=== PATIENT | female | born 2000 | race Caucasian/White ===

== ENCOUNTER 2022-10-05 21:10 | Emergency (ER) | payer OTHER ==
[~2022-10-05] VITALS: Ht 162.6 cm; Wt 95.3 kg
[2022-10-05 21:25] VITALS: BP 146/95
--- NOTE | 2022-10-05 23:48 | NUR ---
PT AMBULATE TO ROOM 8
--- NOTE | 2022-10-05 23:52 | NUR ---
22YR OLD FEMALE BIB SELF C/O LOWER BACK PAIN X1DAY. DENIES INJURY OR TRAUMA. PAIN LEVEL 10/10 RADIATES DOWN L LEG. PT IS A&OX4. NKDA NO MED HX
--- NOTE | 2022-10-06 00:24 | NUR ---
Dr. Faulkner examining patient.
[2022-10-06] MEDS ORDERED: methocarbamoL 500 MG TAB PO ONE (00:35)
[2022-10-06] MEDS ORDERED: KETOROLAC 30 MG/ML VIAL IM ONE (00:35)
[2022-10-06] MEDS ORDERED: oxyCODONE/APAP 5/325 MG 1 TAB TAB PO ONE (00:35)
[2022-10-06] MEDS ORDERED: ACET-5629 PO ×3 (02:17→02:20)
[2022-10-06] MEDS ORDERED: EMLAC TP ×2 (02:17→02:20)
[2022-10-06] MEDS ORDERED: IBUP-2213 PO (02:17)
[2022-10-06] MEDS ORDERED: METH-1681 PO ×2 (02:17→02:20)
--- NOTE | 2022-10-06 02:26 | NUR ---
Patient discharged with v/s stable. Written and verbal after care instructions given and explained. Patient verbalized understanding. Ambulatory with steady gait. All questions addressed prior to discharge. Advised to follow up with PMD.
== END 2022-10-06 02:26 | disposition home or self-care (01) ==
LOC: MED 21:10
DX: S39.012A Strain of muscle, fascia and tendon of lower back, initial encounter (principal); X58.XXXA Exposure to other specified factors, initial encounter; Y93.89 Activity, other specified; Y92.89 Other specified places as the place of occurrence of the external cause; Y99.8 Other external cause status
CPT/HCPCS: 96372; 99283; J1885

== ENCOUNTER 2023-10-02 18:53 | Emergency (ER) | payer OTHER ==
[~2023-10-02] VITALS: Ht 162.6 cm; Wt 97.5 kg
[~2023-10-02 18:53] MED LIST: ACET-5629 PO; EMLAC TP; IBUP-2213 PO; METH-1681 PO
[2023-10-02 19:30] VITALS: BP 115/75; PULSE 93; RESP 18; TEMP 98.2; O2SAT 97
[2023-10-02] MEDS ORDERED: HYDROcodone/APAP 5/325 MG 1 TAB TAB PO ONE (20:45)
[2023-10-02 21:08] LABS: BASOPHILS % (AUTO) 0.2 % (0.0-2.0); EOSINOPHILS # (AUTO) 0.1 K/uL (0-0.4); EOSINOPHILS % (AUTO) 0.6 % (0.0-4.0); HEMATOCRIT 39.4 % (36-48); HEMOGLOBIN 13.1 g/dL (12.0-16.0); LYMPHOCYTES # (AUTO) 1.3 K/uL (2.5-16.5); LYMPHOCYTES % (AUTO) 10.5 % (20.5-51.1); MEAN CORPUSCULAR HEMOGLOBIN 28 pg (27-31); MEAN CORPUSCULAR HGB CONC 33 g/dL (33-37); MEAN CORPUSCULAR VOLUME 85.5 fL (80-94); MONOCYTES # (AUTO) 0.6 K/uL (0.8-1.0); NEUTROPHILS # (AUTO) 10.4 K/uL (1.8-7.7); NEUTROPHILS % (AUTO) 83.7 % (42.2-75.2); PLATELET COUNT (AUTO) 251 K/uL (140-450); RED BLOOD CELL COUNT(AUTO) 4.61 MIL/uL (4.20-5.40); RED CELL DISTRIBUTION WIDTH 14.4 % (11.6-13.7); WHITE BLOOD COUNT (AUTO) 12.4 K/uL (4.8-10.8)
[2023-10-02 21:23] LABS: ANION GAP 15.7 (8-16); CALCIUM 9.5 mg/dL (8.5-10.1); CARBON DIOXIDE 24.1 mmol/L (21-32); CREATININE 0.7 mg/dL (0.6-1.3); POTASSIUM 3.8 mmol/L (3.5-5.1)
[2023-10-02 21:27] LABS: ALBUMIN 3.8 g/dL (3.4-5.0); BILIRUBIN,DIRECT 0.1 mg/dL (0.0-0.3); TOTAL BILIRUBIN 0.3 mg/dL (0.0-1.0); TOTAL PROTEIN, SERUM 8.9 g/dL (6.4-8.2)
[2023-10-03 00:40] VITALS: BP 115/75; PULSE 93; RESP 18; TEMP 98.2; O2SAT 97
[2023-10-03] MEDS ORDERED: ONDA-188 PO (00:47)
== END 2023-10-03 00:40 | disposition home or self-care (01) ==
LOC: MED 18:53
DX: R10.32 Left lower quadrant pain (principal); R20.0 Anesthesia of skin; R20.2 Paresthesia of skin; R11.0 Nausea; Z98.890 Other specified postprocedural states; Z79.899 Other long term (current) drug therapy; Z79.1 Long term (current) use of non-steroidal anti-inflammatories (NSAID)
CPT/HCPCS: 36415; 76856; 80048; 80076; 81002; 81025; 83690; 85025; 99284

== ENCOUNTER 2024-05-12 08:59 | Emergency (ER) | payer OTHER ==
[~2024-05-12] VITALS: Ht 165.1 cm; Wt 109.8 kg
[~2024-05-12 08:59] MED LIST changes: +ONDA-188 PO
[2024-05-12 09:27] VITALS: BP 141/54; PULSE 79; RESP 18; TEMP 97.7; O2SAT 100
[2024-05-12 10:33] LABS: BASOPHILS % (AUTO) 0.3 % (0.0-2.0); EOSINOPHILS # (AUTO) 0.2 K/uL (0-0.4); HEMATOCRIT 37.7 % (36-48); LYMPHOCYTES # (AUTO) 1.5 K/uL (2.5-16.5); MEAN CORPUSCULAR HEMOGLOBIN 26 pg (27-31); MEAN CORPUSCULAR HGB CONC 32 g/dL (33-37); MEAN CORPUSCULAR VOLUME 82.2 fL (80-94); MONOCYTES # (AUTO) 0.7 K/uL (0.8-1.0); MONOCYTES % (AUTO) 5.6 % (1.7-9.3); NEUTROPHILS # (AUTO) 9.7 K/uL (1.8-7.7); NEUTROPHILS % (AUTO) 80.1 % (42.2-75.2); PLATELET COUNT (AUTO) 262 K/uL (140-450); RED BLOOD CELL COUNT(AUTO) 4.59 MIL/uL (4.20-5.40); RED CELL DISTRIBUTION WIDTH 16.1 % (11.6-13.7); WHITE BLOOD COUNT (AUTO) 12.1 K/uL (4.8-10.8)
[2024-05-12 10:42] LABS: APPEARANCE,URINE CLEAR (CLEAR); BILIRUBIN,URINE NEGATIVE (NEGATIVE); BLOOD, URINE 1+ (NEGATIVE); COLOR,URINE YELLOW (YELLOW); LEUKOCYTE ESTERASE ,URINE NEGATIVE (NEGATIVE); NITRITE, URINE NEGATIVE (NEGATIVE); PROTEIN,URINE NEGATIVE (NEGATIVE); UGLUCOSE NEGATIVE (NEGATIVE); UROBILINOGEN,URINE 0.2 EU/dL (0.2 - 1)
[2024-05-12 10:56] LABS: BACTERIA,URINE OCCASSIONAL /HPF (None Seen); RBC,URINE 0-5 /HPF (0-5); SQUAMOUS EPITHELIAL CELL,UR 4-10 (MOD) /LPF (0-3 (FEW)); WBC,URINE 0-5 /HPF (0-5)
[2024-05-12 11:43] LABS: ANION GAP 12.6 (8-16); CARBON DIOXIDE 27.1 mmol/L (21-32); CREATININE 0.8 mg/dL (0.6-1.3); POTASSIUM 3.7 mmol/L (3.5-5.1)
[2024-05-12 11:56] LABS: ALBUMIN 3.6 g/dL (3.4-5.0); TOTAL BILIRUBIN 0.3 mg/dL (0.0-1.0); TOTAL PROTEIN, SERUM 7.4 g/dL (6.4-8.2)
[2024-05-12] MEDS: NACL 0.9% 1,000 ML IV ONE (13:30)
[2024-05-12] MEDS ORDERED: DICYCLOMINE HCL LIQUID 10 MG/5 ML UDC ONE (14:06)
[2024-05-12] MEDS ORDERED: ALUMINUM HYD/MAG/SIMETHICONE 30 ML UDC ONE (14:06)
[2024-05-12] MEDS: KETOROLAC 30 MG/ML VIAL IVP ONE (14:09)
[2024-05-12] MEDS: DICYCLOMINE HCL LIQUID 20 MG, ALUMINUM HYD/MAG/SIMETHICONE 30 ML, LIDOCAINE VISCOUS 2% ... PO ONE (14:09)
[2024-05-12] MEDS ORDERED: FAMO-90 PO (14:19)
[2024-05-12] MEDS ORDERED: ACET500T99 PO (14:19)
[2024-05-12] MEDS ORDERED: MAG355OR2 PO (14:19)
[2024-05-12 14:40] VITALS: BP 141/54; PULSE 79; RESP 18; TEMP 97.7; O2SAT 100
== END 2024-05-12 14:30 | disposition home or self-care (01) ==
LOC: MED 08:59
DX: K29.70 Gastritis, unspecified, without bleeding (principal); Z79.899 Other long term (current) drug therapy
CPT/HCPCS: 36415; 74177; 76705; 80053; 81001; 81025; 83690; 85025; 96361; 96374; 99285; J1885; J7030; Q0092; Q9967

== ENCOUNTER 2024-06-12 17:19 | Emergency (ER) | payer OTHER ==
[~2024-06-12] VITALS: Ht 162.6 cm; Wt 107.2 kg
[~2024-06-12 17:19] MED LIST changes: +ACET500T99 PO; +FAMO-90 PO; +MAG355OR2 PO
[2024-06-12 17:23] VITALS: BP 132/78; PULSE 70; RESP 20; TEMP 97.8; O2SAT 100
[2024-06-12] MEDS ORDERED: ONDA-188 SL (19:57)
[2024-06-12] MEDS: ALUMINUM HYD/MAG/SIMETHICONE 30 ML UDC PO ONE (20:31)
[2024-06-12] MEDS: ONDANSETRON 4 MG ODT PO ONE (20:31)
[2024-06-12 21:37] LABS: APPEARANCE,URINE CLEAR (CLEAR); BILIRUBIN,URINE 2+ (NEGATIVE); BLOOD, URINE TRACE-I (NEGATIVE); COLOR,URINE YELLOW (YELLOW); LEUKOCYTE ESTERASE ,URINE NEGATIVE (NEGATIVE); NITRITE, URINE NEGATIVE (NEGATIVE); PROTEIN,URINE 2+ (NEGATIVE); UGLUCOSE NEGATIVE (NEGATIVE); UROBILINOGEN,URINE 0.2 EU/dL (0.2 - 1)
[2024-06-12 21:43] LABS: ICTOTEST POSITIVE (NEGATIVE)
[2024-06-12 21:55] LABS: BACTERIA,URINE FEW /HPF (None Seen); RBC,URINE 0-5 /HPF (0-5); WBC,URINE NONE SEEN /HPF (0-5)
[2024-06-15] MEDS ORDERED: PANT40EC PO (10:40)
== END 2024-06-12 21:42 | disposition home or self-care (01) ==
LOC: MED 17:19
DX: R11.2 Nausea with vomiting, unspecified (principal); R03.0 Elevated blood-pressure reading, without diagnosis of hypertension; J45.909 Unspecified asthma, uncomplicated; F41.9 Anxiety disorder, unspecified; Z79.899 Other long term (current) drug therapy
CPT/HCPCS: 81001; 81025; 99284; Q0162